=== PATIENT | male | born 1970 | race Caucasian/White ===

== ENCOUNTER 2020-02-16 12:34 | Emergency (ER) | payer OTHER, SELFPAY ==
--- NOTE | 2020-02-16 12:42 | ED.SKABFB ---
HPI - Skin/Abscess/Foreign Bdy General Chief complaint: Skin/Abscess/Foreign Body Stated complaint: remove jose francisco Time Seen by Provider: 02/16/20 12:45 Source: RN notes reviewed Mode of arrival: ambulatory Limitations: no limitations History of Present Illness HPI narrative: 49 year old male who presents to [facility] care with stated complaints of having received a laceration to the lateral right leg while on vacation in [place]. Patient states that is has been 12 days and he needs the jose francisco removed. Patient states that he got cut from a piece of wire on a chair and it took 28 jose francisco to close the wound. patient has V shaped wound to the right lateral lower leg (8cm length of inner laceration and 6cm length of outer laceration). Patient does have some red inflamed tissue distal to wound, denies any fevers or noted drainage from wound. complaint: laceration Onset (ago): day(s) (12 days ago while on vacation) Tetanus up to date: yes Location: LLE Severity: moderate Severity scale (1-10): 2 Quality: aching Pain Consistency: intermittent Relieving factors: rest Exacerbating factors: movement Context: other (injury while in [place]) Treatments prior to arrival: bandages and OTC topical medication (neosporin) Related Data Home Medications Medication Instructions Recorded Confirmed irbesartan 75 mg PO DAILY 02/16/20 02/16/20 metformin 500 mg PO BID 02/16/20 02/16/20 Allergies Allergy/AdvReac Type Severity Reaction Status Date / Time No Known Allergies Allergy Unverified 02/16/20 12:52 Review of Systems Review of Systems: Narrative: CONSTITUTIONAL: Denies fever, chills, or sweats. EYES: Denies visual changes, redness, or discharge. ENT: Denies rhinorrhea, congestion, sore throat, or otalgia. CARDIOVASCULAR: Denies chest pain, palpitations, or edema. RESPIRATORY: Denies cough or dyspnea. GASTROINTESTINAL: Denies abdominal pain, nausea, vomiting, or diarrhea. GENITOURINARY: Denies dysuria or hematuria. SKIN: Denies rash or itching. Vshape wound to right lateral lower leg with some redness noted to skin distal wound, mild pain to leg with activity MUSCULOSKELETAL: Denies back pain, joint pain, or myalgia. NEUROLOGIC: Denies headache, numbness, or weakness. PSYCHIATRIC: Denies anxiety or depression. All systems reviewed & are unremarkable except as noted in HPI and below PMFSH Past Medical History Medical History (Updated 02/16/20 @ 16:30 by Roxana Arceo NP) Ankle fracture Diabetes GERD (gastroesophageal reflux disease) Hypertension Surgical History Surgical History (Updated 02/16/20 @ 16:18 by Roxana Arceo NP) Hx of tonsillectomy Family History Family History Other Diabetes mellitus Family history of heart disease in male family member before age 55 Hypertension Social History Social History (Updated 02/16/20 @ 16:18 by Roxana Arceo NP) Smoking status: Never smoker Alcohol intake: current Substance use: never Living arrangements: with family Gender identity (if verbalized by the patient): Male Comments At time of signature, agree with nursing past medical, surgical, social and family history. There is no relevant family history pertinent to the presenting complaint Exam Narrative: Exam Narrative: GENERAL: Well-appearing, well-nourished, and in no acute distress. HEAD: Normocephalic, atraumatic. EYES: PERRLA and EOMI. ENT: Nares clear, no rhinorrhea or epistaxis. Mucous membranes moist. NECK: Supple. CHEST: Clear to auscultation. No respiratory distress. HEART: Regular rate and rhythm. No murmur heard. Normal peripheral pulses. ABDOMEN: Soft, nontender, nondistended, normal active bowel sounds. EXTREMITIES: Normal range of motion. No edema. SKIN: Warm, dry. 8cm X 6cm V shaped wound on lateral right lower leg, 28 jose francisco removed with edges well approximated, no drainage, some shiny redness of skin distal wound area, n
[2020-02-16 12:46] VITALS: BP 154/81; PULSE 77; RESP 16; TEMP 36.3; O2SAT 99
== END 2020-02-16 13:26 | disposition home or self-care (01) ==
PROVIDERS: Emergency Provider Registered Nurse
DX: S81.811D Laceration without foreign body, right lower leg, subsequent encounter (principal); W45.8XXD Other foreign body or object entering through skin, subsequent encounter; L03.115 Cellulitis of right lower limb; E11.9 Type 2 diabetes mellitus without complications; K21.9 Gastro-esophageal reflux disease without esophagitis; I10 Essential (primary) hypertension
CPT/HCPCS: 99203; G0463

== ENCOUNTER 2021-09-15 08:32 | Outpatient (CLI) | payer OTHER, SELFPAY ==
--- NOTE | 2021-09-15 09:01 | EST_ITS ---
Patient Info Name: Mich Mcfarland Age: 51 years : 1970 Gender: Male Ht: 72 in Wt: 290 lbs BSA: 2.64 m2 HR: 78 bpm BP: 123 / 82 mmHg Exam Date: 09/15/2021 9:14 AM Exam Location: [facility] Patient Status: Outpatient Admit Date: 09/15/2021 Staff Ordering Physician: Christine Robles NP Attending Provider: DR. HALL Exercise Technologist: Bao Schumacher, ELIAZAR, RT Exercise Physician: Griffin Hall DO Exam Type: CA stress test treadmill Study Info Indications R07.1 - Chest pain on breathing An exercise stress test was performed. Summary 1. 1. Negative Ra exercise stress test for ischemic ST changes by ECG criteria up to HR 130 bpm. Then development of LBBB which is inconclusive for ischemia by ECG criteria. 2. 2. Good functional capacity, achieving 10 METs of workload. 3. 3. Appropriate HR response to exercise. 4. 4. Appropriate HR recovery at 1 minute post exercise. 5. 5. No imaging with stress testing. 6. 6. Patient informed of the above results. Protocol: [facility] ECG Details Stage: REST Duration (min): 2 min : 33 sec Speed (mph): 0.0 Grade (%): 0 HR (bpm): 90 SBP (mmHg): 123 DBP (mmHg): 82 METS: --- Stage: REST Duration (min): 7 min : 37 sec Speed (mph): 1.0 Grade (%): 0 HR (bpm): 95 SBP (mmHg): 123 DBP (mmHg): 82 METS: --- Stage: STAGE 1 Duration (min): 1 min : 0 sec Speed (mph): 1.7 Grade (%): 10 HR (bpm): 101 SBP (mmHg): 123 DBP (mmHg): 82 METS: --- Stage: STAGE 1 Duration (min): 2 min : 0 sec Speed (mph): 1.7 Grade (%): 10 HR (bpm): 103 SBP (mmHg): 123 DBP (mmHg): 82 METS: --- Stage: STAGE 1 Duration (min): 3 min : 0 sec Speed (mph): 1.7 Grade (%): 10 HR (bpm): 109 SBP (mmHg): 157 DBP (mmHg): 79 METS: --- Stage: STAGE 2 Duration (min): 1 min : 0 sec Speed (mph): 2.5 Grade (%): 12 HR (bpm): 114 SBP (mmHg): 157 DBP (mmHg): 79 METS: --- Stage: STAGE 2 Duration (min): 2 min : 0 sec Speed (mph): 2.5 Grade (%): 12 HR (bpm): 118 SBP (mmHg): 169 DBP (mmHg): 75 METS: --- Stage: STAGE 2 Duration (min): 3 min : 0 sec Speed (mph): 2.5 Grade (%): 12 HR (bpm): 126 SBP (mmHg): 169 DBP (mmHg): 75 METS: --- Stage: STAGE 3 Duration (min): 1 min : 0 sec Speed (mph): 3.4 Grade (%): 14 HR (bpm): 143 SBP (mmHg): 192 DBP (mmHg): 85 METS: --- Stage: STAGE 3 Duration (min): 2 min : 0 sec Speed (mph): 3.4 Grade (%): 14 HR (bpm): 144 SBP (mmHg): 192 DBP (mmHg): 85 METS: --- Stage: STAGE 3 Duration (min): 2 min : 42 sec Speed (mph): 3.4 Grade (%): 14 HR (bpm): 149 SBP (mmHg): 185 DBP (mmHg): 72 METS: --- Stage: RECOVERY Duration (min): 0 min : 17 sec Speed (mph): 1.5 Grade (%): 0 HR (bpm): 148 SBP (mmHg): 185 DBP (mmHg
== END 2021-09-15 08:33 | disposition home or self-care (01) ==
PROVIDERS: PCP Internal Medicine; Visit Provider Nurse Practitioner
DX: R07.9 Chest pain, unspecified (principal)
CPT/HCPCS: 93017

== ENCOUNTER 2021-11-24 02:52 | Day surgery (SDC) | payer OTHER, SELFPAY ==
[2021-11-10 15:04] VITALS: BMI 37.0
--- NOTE | 2021-11-24 07:34 | P.PNAN_ITS ---
Anes - Initial Pre Proc Eval Procedure: Operation Date: 11/24/21 09:15 Proposed Procedures p Esophagogastroduodenoscopy & Screening Colonoscopy - Clay Katz MD Date/Time: 11/24/21 07:34 Surgeon: Clay Santacruz MD Pre Op Diagnosis: neoplasm screening, GERD Patient Data Age: 51 Gender: M Height: 1.88 m Weight: 131 kg Allergies Allergy/AdvReac Type Severity Reaction Status Date / Time No Known Allergies Allergy Verified 11/24/21 08:22 Home Medications Medication Instructions Recorded Confirmed Type cholecalciferol (vitamin D3) 10 10 mcg PO DAILY 09/04/21 11/10/21 History mcg (400 unit) capsule dapagliflozin 10 mg tablet 10 mg PO DAILY 09/04/21 11/10/21 History esomeprazole magnesium 20 mg 20 mg PO DAILY 09/04/21 11/10/21 History capsule,delayed release irbesartan 75 mg tablet 75 mg PO DAILY 09/04/21 11/10/21 History metformin 1,000 mg 24 hr 1,000 mg PO BID 09/04/21 11/10/21 History tablet,extended release rosuvastatin 5 mg tablet 5 mg PO DAILY 09/04/21 11/10/21 History semaglutide 1 mg/dose (4 mg/3 mL) 1 mg SUBCUT WEEKLY 09/04/21 11/10/21 History subcutaneous pen injector vitamin B complex 1 tablet PO DAILY 09/04/21 11/10/21 History Patient hx anesthesia problems: none Family hx anesthesia problems: none Results Review: All pre-operative results and documents have been reviewed as part of the pre-operative evaluation. [facility] Past Medical History Medical History (Updated 11/24/21 @ 07:34 by Maix Willis DO) Ankle fracture Cardiovascular stress test abnormal Diabetes GERD (gastroesophageal reflux disease) Hyperlipidemia Hypertension Surgical History Surgical History Hx of tonsillectomy Family History Family History Other Diabetes mellitus Family history of heart disease in male family member before age 55 Hypertension Social History Social History Smoking status: Never smoker Alcohol intake: current Alcohol use details: on occasion Substance use: never Substance use type: does not use Living arrangements: with family Gender identity (if verbalized by the patient): Male Spiritual care concerns: No Anes - Eval Final PreProcedure Day of Procedure 11/24/21 07:34 Patient weight: obese Heart: regular rate and rhythm Lungs: clear to auscultation and normal air movement Airway: Mallampati scale class II Neurological: alert and oriented Last oral intake: >/= 8 hours ASA classification: III Emergent: no Anesthetic plan: proceed Anesthesia type and monitoring: general GIVS and standard monitoring Results Review: All pre-operative results and documents have been reviewed as part of the pre-operative evaluation. Informed Consent: The patient's anesthetic plan and its attendant risks and benefits were discussed with the patient/family/POA. Questions were solicited and answers provided to the satisfaction of the patient/family/POA.
[2021-11-24 08:22] VITALS: BP 134/80; PULSE 87; RESP 18; TEMP 36.3; O2SAT 97; BMI 36.4
[2021-11-24] MEDS: LACTATED RINGERS 1,000 ML 150 ML IV CONT (08:39)
[2021-11-24 08:43] LABS: Glucose Point of Care 157 mg/dl (65-105)
--- NOTE | 2021-11-24 08:53 | PM.HPGS ---
History of Present Illness History of Present Illness Consent: Risks, benefits, and alternatives have been discussed and questions answered. Patient agrees to proceed with procedure. Chief complaint: neoplasm screening, GERD Narrative: Mich Mcfarland is a 51 year old male here for his first egd and screening colonoscopy. He has GERD controlled with omeprazole. Review of Systems Constitutional: Constitutional: Denies headache(s) and Denies weakness Eyes: Eyes: Denies blurry vision ENT: Reports Normal hearing present, Denies headache(s) and Denies neck pain Cardiovascular: Cardiovascular: Denies chest pain and Denies dyspnea Respiratory: Respiratory: Denies dyspnea Gastrointestinal: Gastrointestinal: Reports no additional gastrointestinal complaints Genitourinary: Genitourinary: Denies dysuria Musculoskeletal: Musculoskeletal: Denies neck pain Integumentary/Breasts: Skin/Breast: Denies dry skin Neurologic: Reports Normal hearing present, Denies headache(s) and Denies weakness Psychiatric: Psychiatric: Denies anxiety Endocrine: Endocrine: Denies change in body appearance Hematologic/Lymphatic: Hematologic/Lymphatic: Denies easy bleeding Allergic/Immunologic: Allergic/Immunologic: Denies urticaria PMFSH Past Medical History Medical History (Updated 11/24/21 @ 07:34 by Maxi Willis DO) Ankle fracture Cardiovascular stress test abnormal Diabetes GERD (gastroesophageal reflux disease) Hyperlipidemia Hypertension Surgical History Surgical History Hx of tonsillectomy Family History Family History Other Diabetes mellitus Family history of heart disease in male family member before age 55 Hypertension Social History Social History Smoking status: Never smoker Alcohol intake: current Alcohol use details: on occasion Substance use: never Substance use type: does not use Living arrangements: with family Gender identity (if verbalized by the patient): Male Spiritual care concerns: No Meds Home Medications and Allergies Home Medications Medication Instructions Recorded Confirmed Type cholecalciferol (vitamin D3) 10 10 mcg PO DAILY 09/04/21 11/10/21 History mcg (400 unit) capsule dapagliflozin 10 mg tablet 10 mg PO DAILY 09/04/21 11/10/21 History esomeprazole magnesium 20 mg 20 mg PO DAILY 09/04/21 11/10/21 History capsule,delayed release irbesartan 75 mg tablet 75 mg PO DAILY 09/04/21 11/10/21 History metformin 1,000 mg 24 hr 1,000 mg PO BID 09/04/21 11/10/21 History tablet,extended release rosuvastatin 5 mg tablet 5 mg PO DAILY 09/04/21 11/10/21 History semaglutide 1 mg/dose (4 mg/3 mL) 1 mg SUBCUT WEEKLY 09/04/21 11/10/21 History subcutaneous pen injector vitamin B complex 1 tablet PO DAILY 09/04/21 11/10/21 History Allergies Allergy/AdvReac Type Severity Reaction Status Date / Time No Known Allergies Allergy Verified 11/24/21 08:22 Vital Signs Vital Signs - 24 hr 11/24/21 08:22 Temperature 97.4 F L Pulse Rate 87 Respiratory Rate 18 Blood Pressure 134/80 Pulse Oximetry 97 Exam Const: General: comfortable and no acute distress HENMT: General nose exam: Normal nares present Eyes: General: appearance normal, both eyes and all related structures Neck: Neck: no JVD Resp: Auscultation: clear to auscultation bilaterally Cardio: Rate: regular rate Rhythm: regular rhythm GI: Inspection: non-distended GI Palp: Yes Soft to palpation Skin: General skin exam: normal color Neuro: General: gait normal Speech: normal speech Extrem: General: normal to inspection Psych: Mental Status: mental status grossly normal Assessment and Plan Assessment and plan (1) Screening for colon cancer: Code(s): Z12.11 - Encounter for screening for tim
--- NOTE | 2021-11-24 09:23 | SUR.OPER ---
EGD START 900, END 908 COLON START 911, END 922
[2021-11-24 09:24] VITALS: BP 108/71; PULSE 80; RESP 18; O2SAT 97
[2021-11-24 09:34] VITALS: BP 114/71; PULSE 76; RESP 18; O2SAT 97
[2021-11-24 09:44] VITALS: BP 112/73; PULSE 71; RESP 18; O2SAT 97
== END 2021-11-24 09:50 | disposition home or self-care (01) ==
PROVIDERS: PCP Internal Medicine; Visit Provider Internal Medicine Gastroenterology
PROC: 0DJ08ZZ Inspection of Upper Intestinal Tract, Via Natural or Artificial Opening Endoscopic (ICD-10-PCS; CPT 43235; principal; 2021-11-24 09:15)
DX: Z12.11 Encounter for screening for malignant neoplasm of colon (principal); D12.3 Benign neoplasm of transverse colon; K63.5 Polyp of colon; K64.8 Other hemorrhoids; K21.00 Gastro-esophageal reflux disease with esophagitis, without bleeding; K31.7 Polyp of stomach and duodenum; K29.50 Unspecified chronic gastritis without bleeding; I10 Essential (primary) hypertension; E78.5 Hyperlipidemia, unspecified; E11.9 Type 2 diabetes mellitus without complications; Z79.84 Long term (current) use of oral hypoglycemic drugs; Z79.899 Other long term (current) drug therapy; E66.9 Obesity, unspecified; Z68.36 Body mass index [BMI] 36.0-36.9, adult
CPT/HCPCS: 45385; 43239; 43251; 82948; 88305; J2704; J7120

== ENCOUNTER 2023-08-26 11:06 | Emergency (ER) | payer OTHER, SELFPAY ==
[2023-08-26] VITALS (12 sets, daily range): BP systolic 108–140; BP diastolic 62–97; PULSE 75–165; RESP 12–27; O2SAT 96–99
--- NOTE | ~2023-08-26 | XR_ITS ---
EXAMINATION: XR chest 2V DATE: 08/26/2023 11:42 INDICATION: Chest pain and dizziness TECHNIQUE: PA and lateral views of the chest are obtained. COMPARISON: None available FINDINGS: The lungs are free of acute opacities. No pleural effusion or pneumothorax. The cardiomedia stinal silhouette is normal. There is mild thoracic spondylosis. IMPRESSION: 1. No acute cardiopulmonary abnormality. Reviewed, dictated and finalized at location [facility]. [facility] [employer]
--- NOTE | 2023-08-26 11:07 | ECG_ITS ---
Measurements Intervals [place] Rate: 155 P: [place]: 0 QRS: -8 QRSD: 124 T: 138 QT: 267 QTc: 430 Interpretive Statements ATRIAL FIBRILLATION WITH RAPID VENTRICULAR RESPONSE LEFT BUNDLE BRANCH BLOCK [120+ ms QRS DURATION, 80+ ms Q/S IN V1/V2, 85+ ms R IN I/aVL/V5/V6] NO PREVIOUS ECG AVAILABLE FOR COMPARISON Electronically Signed On 08-26-2023 13:29:24 [employer] by Magdiel Parkinson M.D.
[2023-08-26] MEDS: dilTIAZem HCl INJ 25 MG/5 ML VIAL 15 MG IV PUSH (11:17)
[2023-08-26] MEDS: ASPIRIN 81 MG CHEWABLE TABLET 324 MG PO (11:18)
[2023-08-26] MEDS: dilTIAZem HCl INJ 25 MG/5 ML VIAL 10 MG IV PUSH (11:32)
[2023-08-26 11:34] LABS: Basophils Absolute Auto 0.1 K/mm3 (0.0-0.1); Basophils Percent Auto 0.4 % (0.2-1.2); Eosinophils Absolute Auto 0.1 K/mm3 (0-0.3); Hemoglobin 17.1 g/dL (14.0-18.0); Immature Granulocyte Absolute 0.04 K/mm3 (0.00-0.031); Immature Granulocyte Percent A 0.3 % (0-0.5); Lymphocytes Absolute Auto 4.07 K/mm3 (0.9-3.2); Lymphocytes Percent Auto 35.4 % (18.3-44.2); Mean Corpuscular HGB Conc 33.5 g/dl (32-36); Mean Corpuscular Volume 95.5 fl (80-100); Mean Platelet Volume 10.3 fl (7.4-10.4); Monocytes Absolute Auto 1.1 K/mm3 (0.1-0.6); Monocytes Percent Auto 9.6 % (2.6-8.5); Neutrophils Absolute Auto 6.1 K/mm3 (1.3-6.7); Neutrophils Percent Auto 53.3 % (45.5-73.1); Platelet Count Result 239 k/mm3 (150-375); Red Blood Count 5.34 M/mm3 (4.6-6.20); Red Cell Distribution Width 12.8 % (11.5-14.5); White Blood Count 11.5 K/mm3 (4.5-10.0)
[2023-08-26 11:45] LABS: Alanine Aminotransferase 41 U/L (6-50); Albumin Level 4.6 g/dL (3.5-5.1); Alkaline Phosphatase 72 U/L (38-126); Anion Gap 15 mmol/L (8-16); Aspartate Amino Transferase 33 U/L (17-59); Bilirubin,Total 0.8 mg/dL (0.2-1.3); Blood Urea Nitrogen 13 mg/dL (9-20); Calcium 9.4 mg/dL (8.4-10.2); Carbon Dioxide 20 mmol/L (22-30); Chloride 104 mmol/L (98-107); Estimated CRCL calculation 130 ml/min; Estimated Glomerular Filt Rate > 60; Glucose 261 mg/dL (65-110); Lipase 68 U/L (23-300); Potassium 4.3 mmol/L (3.4-5.0); Sodium 139 mmol/L (137-145)
[2023-08-26 11:46] LABS: INR 0.9; Prothrombin Time 12.5 Seconds (11.1-14.7)
[2023-08-26 11:47] LABS: Partial Thromboplastin Time 26.8 SECONDS (22.3-36.8)
[2023-08-26 11:56] LABS: Troponin I < 0.012 ng/mL (0.000-0.034)
--- NOTE | 2023-08-26 12:09 | ED.GENADULT ---
HPI - General Adult General Chief complaint: Chest Pain Stated complaint: chest pain Time Seen by Provider: 08/26/23 11:13 History of Present Illness HPI narrative: Patient is a 53-year-old male who presents ER with feeling off since this morning. No chest pain or shortness of breath. No dizziness. He has was felt more weak and ill. Arrived was found to be in atrial fibrillation with RVR. No history of arrhythmia or heart disease. He has seen a coil winder due to family history of congestive heart failure. No new leg swelling or orthopnea. Related Data Home Medications Medication Instructions Recorded Confirmed irbesartan 75 mg tablet mg 08/26/23 08/26/23 metformin 500 mg tablet mg 08/26/23 rosuvastatin 20 mg tablet mg 08/26/23 semaglutide 2 mg/dose (8 mg/3 mL) mg subcut 08/26/23 subcutaneous pen injector (Ozempic) Allergies Allergy/AdvReac Type Severity Reaction Status Date / Time No Known Allergies Allergy Verified 08/26/23 11:20 Review of Systems Review of Systems: All systems reviewed & are unremarkable except as noted in HPI and below Constitutional: Constitutional: Denies chills, Reports fatigue and Denies fever(s) ENT: Reports system reviewed and no additional complaints, except as documented Cardiovascular: Cardiovascular: Reports no additional cardiovascular complaints Respiratory: Respiratory: Reports no additional respiratory complaints Gastrointestinal: Gastrointestinal: Reports no additional gastrointestinal complaints Neurologic: Reports system reviewed and no additional complaints, except as documented [facility] Past Medical History Medical History Ankle fracture Cardiovascular stress test abnormal Diabetes GERD (gastroesophageal reflux disease) Hyperlipidemia Hypertension Surgical History Surgical History Hx of tonsillectomy Family History Family History Other Diabetes mellitus Family history of heart disease in male family member before age 55 Hypertension Social History Social History Smoking status: Never smoker Alcohol intake: current Alcohol use details: on occasion Substance use: never Substance use type: does not use Lack of Transportation: No Lack of Food: Never True Current Housing: I Have Housing Concerned About Future Housing: No Difficulty Paying Gas/Electric Bills: No Difficulty Paying for Meds: No Currently Unemployed: No Education: Bachelor's Degree Difficulty w/ Childcare or Family Care: No Living arrangements: with family Gender identity (if verbalized by the patient): Male Spiritual care concerns: No Exam Narrative: GENERAL: Well-appearing, well-nourished, and in no acute distress. HEAD: Normocephalic, atraumatic. ENT: Mucous membranes moist. NECK: Supple. CHEST: Clear to auscultation. No respiratory distress. HEART: Irregularly irregular rate and rhythm. Normal peripheral pulses. ABDOMEN: Soft, nontender, nondistended. EXTREMITIES: Normal range of motion. No edema. SKIN: Warm, dry, no rash. NEURO: Alert and oriented x3. PSYCH: Normal mood and affect. Course Course Emergency Course: Patient received diltiazem 25 mg. He converted to a sinus rhythm. Discussed with cardiology. Recommends metoprolol XL 25 mg daily starting tomorrow and follow-up in clinic. Patient aware diagnosis and treatment plan. Vital Signs Vital signs: Vital Signs Pulse Rate 139 H 08/26/23 11:11 Respiratory Rate 17 08/26/23 11:11 Blood Pressure 120/95 H 08/26/23 11:11 Pulse Oximetry 98 08/26/23 11:11 Oxygen Delivery Room Air 08/26/23 11:11 Pulse Rate 78 08/26/23 13:01 Respiratory Rate 14 08/26/23 13:01 Blood Pressure 116/62 08/26/23 13:01 Pulse Oximetry 96
--- NOTE | 2023-08-26 12:16 | ECG_ITS ---
Measurements Intervals [place] Rate: 80 P: 29 AR: 163 QRS: -10 QRSD: 104 T: 102 QT: 324 QTc: 376 Interpretive Statements SINUS RHYTHM SEPTAL MYOCARDIAL INFARCTION , OF INDETERMINATE AGE [40+ ms Q WAVE IN V1/V2] MODERATE T-WAVE ABNORMALITY, CONSIDER LATERAL ISCHEMIA [-0.1+ mV T WAVE IN I/aVL/V5/V6] COMPARED TO ECG 08/26/2023 11:10:04 SINUS RHYTHM NOW PRESENT LEFT BUNDLE BRANCH BLOCK NO LONGER PRESENT Electronically Signed On 08-26-2023 13:31:58 [employer] by Magdiel Parkinson M.D.
[2023-08-26 12:42] LABS: NT Pro B Type Natriuretic Pept 39 pg/mL (19.9-100)
== END 2023-08-26 14:00 | disposition home or self-care (01) ==
PROVIDERS: Emergency Provider Emergency Medicine; PCP Internal Medicine
DX: I48.91 Unspecified atrial fibrillation (principal); E11.9 Type 2 diabetes mellitus without complications; E78.5 Hyperlipidemia, unspecified; I10 Essential (primary) hypertension; K21.9 Gastro-esophageal reflux disease without esophagitis; Z79.84 Long term (current) use of oral hypoglycemic drugs; Z79.85 Long-term (current) use of injectable non-insulin antidiabetic drugs; I44.7 Left bundle-branch block, unspecified; R94.31 Abnormal electrocardiogram [ECG] [EKG]
CPT/HCPCS: 36415; 71046; 80053; 83690; 83880; 84484; 85025; 85610; 85730; 93005; 96374; 99284; A9270; J7030

== ENCOUNTER 2023-10-16 03:06 | Observation (INO) | payer OTHER, SELFPAY ==
[2023-10-16] VITALS (29 sets, daily range): BP systolic 97–177; BP diastolic 58–96; PULSE 52–147; RESP 11–21; TEMP 36.2–36.8; O2SAT 94–100; BMI 37.0
--- NOTE | ~2023-10-16 | XR_ITS ---
EXAMINATION: XR chest 1V portable DATE: 10/16/2023 03:27 INDICATION: Atrial fibrillation with racing heart. TECHNIQUE: frontal view of the chest was obtained. COMPARISON: Chest radiograph dated 08/26/2023 FINDINGS: The lungs remain clear with no focal airspace opacities, pulmonary edema, pleural effusion or pneumot horax. The cardiomediastinal silhouette is normal. Visualized bones and soft tissues are unremarkable . IMPRESSION: 1. No acute cardiopulmonary disease. Reviewed, dictated and finalized at location A.
--- NOTE | 2023-10-16 03:07 | ECG_ITS ---
SEE SCANNED COPY FOR CONFIRMED REPORT MTDD
[2023-10-16 03:22] LABS: Basophils Percent Auto 0.4 % (0.2-1.2); Eosinophils Absolute Auto 0.2 K/mm3 (0-0.3); Eosinophils Percent Auto 1.8 % (0-4.4); Hemoglobin 16.7 g/dL (14.0-18.0); Immature Granulocyte Absolute 0.03 K/mm3 (0.00-0.031); Immature Granulocyte Percent A 0.3 % (0-0.5); Lymphocytes Percent Auto 42.7 % (18.3-44.2); Mean Corpuscular HGB Conc 34.8 g/dl (32-36); Mean Corpuscular Volume 94.9 fl (80-100); Mean Platelet Volume 9.7 fl (7.4-10.4); Neutrophils Absolute Auto 3.9 K/mm3 (1.3-6.7); Neutrophils Percent Auto 43.8 % (45.5-73.1); Platelet Count Result 196 k/mm3 (150-375); Red Blood Count 5.06 M/mm3 (4.6-6.20); Red Cell Distribution Width 12.4 % (11.5-14.5); White Blood Count 8.9 K/mm3 (4.5-10.0)
[2023-10-16 03:32] LABS: Alanine Aminotransferase 34 U/L (6-50); Albumin Level 4.7 g/dL (3.5-5.1); Alkaline Phosphatase 76 U/L (38-126); Anion Gap 9 mmol/L (4-12); Aspartate Amino Transferase 28 U/L (17-59); Bilirubin,Total 0.5 mg/dL (0.2-1.3); Blood Urea Nitrogen 9 mg/dL (9-20); Calcium 10.1 mg/dL (8.4-10.2); Carbon Dioxide 27 mmol/L (22-30); Chloride 105 mmol/L (98-107); Estimated CRCL calculation 131 ml/min; Estimated Glomerular Filt Rate > 60; Glucose 224 mg/dL (65-110); INR 0.9; Lipase 109 U/L (23-300); Potassium 3.7 mmol/L (3.4-5.0); Prothrombin Time 12.3 Seconds (11.1-14.7); Sodium 141 mmol/L (137-145)
[2023-10-16 03:33] LABS: Partial Thromboplastin Time 27.7 Seconds (22.3-36.8)
--- NOTE | 2023-10-16 03:35 | PC.NURSE ---
edp dr. lane vorb 10mg of diltiazem IV push. this rn used closed loop communication to confirm 10mg of diltiazem IVP. This rn read back dose, medication, route, and patient. edp dr. lane confirmed.
[2023-10-16] MEDS: dilTIAZem HCl INJ 25 MG/5 ML VIAL 10 MG IV PUSH ×2 (03:39→04:02)
[2023-10-16 03:43] LABS: Troponin I < 0.012 ng/mL (0.000-0.034)
--- NOTE | 2023-10-16 04:04 | ED.GENADULT ---
HPI - General Adult General Chief complaint: Arrhythmia/Palpitations Stated complaint: I'm pretty sure I'm in afib again Time Seen by Provider: 10/16/23 03:15 History of Present Illness HPI narrative: This is a 53-year-old male history of paroxysmal AFib presenting with palpitations. Patient says he was having trouble going to sleep last night due to palpitations. Tried for several hours to relax was unable to get his heart rate controlled. He then came to the emergency department for evaluation. Patient had 1 previous episode of paroxysmal AFib that converted in the emergency department. He has recently seen a pharmacy general manager discuss his 1 episode at that time decided not placed on anticoagulation because of his isolated episode. Patient has no other symptoms at this time. Related Data Home Medications Medication Instructions Recorded Confirmed irbesartan 75 mg tablet mg 08/26/23 08/26/23 metformin 500 mg tablet mg 08/26/23 rosuvastatin 20 mg tablet mg 08/26/23 semaglutide 2 mg/dose (8 mg/3 mL) mg subcut 08/26/23 subcutaneous pen injector (Ozempic) Allergies Allergy/AdvReac Type Severity Reaction Status Date / Time No Known Allergies Allergy Verified 10/16/23 03:15 COUNT INCLUDES THE [facility] Past Medical History Medical History Ankle fracture Cardiovascular stress test abnormal Diabetes GERD (gastroesophageal reflux disease) Hyperlipidemia Hypertension Surgical History Surgical History Hx of tonsillectomy Family History Family History Other Diabetes mellitus Family history of heart disease in male family member before age 55 Hypertension Social History Social History Smoking status: Never smoker Alcohol intake: current Alcohol use details: on occasion Substance use: never Substance use type: does not use Lack of Transportation: No Lack of Food: Never True Current Housing: I Have Housing Concerned About Future Housing: No Difficulty Paying Gas/Electric Bills: No Difficulty Paying for Meds: No Currently Unemployed: No Education: Bachelor's Degree Difficulty w/ Childcare or Family Care: No Living arrangements: with family Gender identity (if verbalized by the patient): Male Spiritual care concerns: No Exam Narrative: APPEARANCE: No apparent distress. Head: atraumatic. EYES: EOMI, NOSE: Atraumatic NECK: Trachea midline RESPIRATORY: No increased rate of breathing clear to auscultation CARDIOVASCULAR: Tachycardic, regular, no peripheral edema ABDOMINAL: Non-distended MUSCULOSKELETAl: No obvious deformities NEURO: Alert. Moving 4/4 extremities SKIN:: Warm, dry. Normal color PSYCHIATRIC: Normal affect Course Vital Signs Vital signs: Vital Signs Temperature 98.2 F 10/16/23 03:12 Pulse Rate 134 H 10/16/23 03:12 Respiratory Rate 16 10/16/23 03:12 Blood Pressure 177/86 H 10/16/23 03:12 Pulse Oximetry 100 10/16/23 03:12 Oxygen Delivery Room Air 10/16/23 03:12 Temperature 98.2 F 10/16/23 03:12 Pulse Rate 95 10/16/23 04:16 Respiratory Rate 17 10/16/23 04:16 Blood Pressure 141/80 H 10/16/23 04:16 Pulse Oximetry 97 10/16/23 04:16 Oxygen Delivery Room Air 10/16/23 03:12 Medical Decision Making [facility] Narrative Medical decision making narrative: -Course: 53-year-old male with paroxysmal AFib presenting with AFib with RVR which he believes started around midnight. Patient given his home dose of metoprolol XL. Given 10 mg of diltiazem x2 with some improvement but still in RVR. Patient started on a diltiazem drip. Patient may be a candidate for cardioversion. Patient given Lovenox for anticoagulation due to chadsVasc 2. Patient will be placed in observation for further management. -Co-morbidities compli
[2023-10-16] MEDS: METOPROLOL SUCCINATE EXT REL 25 MG TABCR PO (04:07)
[2023-10-16] MEDS: SODIUM CHLORIDE 0.9% IV 1,000 ML 999 ML IV CONT (04:17)
[2023-10-16] MEDS: ENOXAPARIN 100 MG/ML SYRINGE SUB-Q (04:47)
[2023-10-16] MEDS: ENOXAPARIN 30 MG/0.3 ML SYRINGE SUB-Q (04:47)
[2023-10-16] MEDS: dilTIAZem 100 MG/100 ML 100 MG/100 ML BAG IV CONT (05:04)
--- NOTE | 2023-10-16 05:09 | PM.IMHP ---
H&P: HPI History of Present Illness Date/Time: 10/16/23 05:09 Chief Complaint: Feels like AFib Narrative: 53-year-old male with past medical history of obesity, essential hypertension, for a type 2 diabetes mellitus, grade 2 diastolic dysfunction and paroxysmal atrial fibrillation who presented to the ER with feeling restless and heart racing similar to when he had AFib. The Patient had his 1st episode of AFib in August 2023. He was treated with 1 dose of Cardizem 25 mg at that time in converted back to sinus rhythm. He was started on Toprol-XL. He followed up with Cardiology with shared decision making they decided not to proceed with long-term anticoagulation given 1 time episode of AFib. However this evening when he was preparing for bed at around 00:30 he could feel his heart palpating and racing. He could not get comfortable. He was not having any shortness of breath for chest pain he just had the odd sensation that he knew he was in AFib. When he arrived to the ER his heart rate was up to the 130s. His initial troponin was negative. His EKG did not demonstrate any evidence of acute ischemia. He received 1 dose of Toprol-XL in the ER and 2 doses of Cardizem 10 mg. The patient's heart rate did slow down but rebounded back up into the 100s to 110's. Patient was also extremely symptomatic with the AFib. He was subsequently admitted to IMU as observation for Cardizem drip. Patient's Cardizem drip was increased to 10 mg while he was still in the ER. On arrival to IMU patient's heart rate was down into the 90s but he was in persistent AFib. Repeat EKG was performed and reviewed while I was at bedside. EKG was unchanged from the one prior in the evening. The patient reports that he no longer drinks caffeinated beverages since his 1st episode of AFib. He does not use energy drinks. He has been sleeping well. He is obese and has a crowded posterior oropharynx. He denies any known history of snoring. He denies daytime fatigue or sleepiness. He did have echo August 2018 a demonstrated grade 2 diastolic dysfunction with EF of 60% moderate to severe enlargement of the left atrium and mild right atrial enlargement. He does have a left bundle-branch block and underwent nuclear stress test that demonstrated hypokinetic apical segment fit no ischemia. Patient has never had a sleep study. He does chew tobacco 1 can daily and has done so since he was in his 20s. However, he has never smoked tobacco. The patient's last A1c with our system was in 2021. He does not know what his most recent A1c was. Review of Systems Review of Systems: 12 systems were reviewed with pertinent positives and negatives per HPI. Except as documented in the HPI, all other systems were reviewed and are negative. Patient has not followed up with for his diabetic eye exam in the last 2 years. He denies any recent vision changes. He does not check his glucoses very often. He does have some symptoms of peripheral neuropathy in his feet. [facility] Past Medical History Medical History (Updated 10/16/23 @ 07:26 by Nicolasa King DO) Ankle fracture Cardiovascular stress test abnormal Diabetic peripheral neuropathy Dyslipidemia GERD (gastroesophageal reflux disease) Hypertension Type 2 diabetes mellitus Surgical History Surgical History (Updated 10/16/23 @ 07:26 by Nicolasa King DO) History of adenoidectomy Childhood S/P anal fissurectomy (~1999) Family History Family History (Updated 10/16/23 @ 07:28 by Nicolasa King DO) Father , At age 80 Family history of heart disease in male family member before age 55 Mother CHF (congestive heart failure) Atrial fibrillation Grandparent Thyroid cancer Diabetes mellitus Atrial fibrillation Other Hypertension Social History Social History (Updated 10/16/23 @ 07:29 by Nicolasa King DO) Social History: Patient lives with his of approximately 31 years. They raised 2 child
--- NOTE | 2023-10-16 05:29 | PC.NURSE ---
this rn attempted to call report.
--- NOTE | 2023-10-16 06:00 | PC.NURSE ---
this rn attempted to call report.
--- NOTE | 2023-10-16 06:07 | ECG_ITS ---
SEE SCANNED COPY FOR CONFIRMED REPORT MTDD
--- NOTE | 2023-10-16 06:09 | PC.NURSE ---
this rn attempted to call report.
--- NOTE | 2023-10-16 07:10 | ADMGEN ---
This patient, Mich Mcfarland, was admitted to IMU Room 201-01 on 10/16/23 at 0626. Patient/family oriented to hospital policies and general routines including ID bracelet, bed and alarms, visiting hours, pain management, procedures, bathroom and other care routines, personal items, smoking policy, room service/diet, and visiting hours. Information on how to activate the Rapid Response Team has been discussed. Patient/Family are encouraged to report perceived risks to care and to ask questions if they do not understand what they are told or what they should do.
[2023-10-16 08:00] LABS: Troponin I < 0.012 ng/mL (0.000-0.034)
[2023-10-16 08:04] LABS: Hemoglobin A1C 7.1 % (<5.7)
--- NOTE | 2023-10-16 08:25 | ECG_ITS ---
SEE SCANNED COPY FOR CONFIRMED REPORT MTDD
[2023-10-16 10:16] LABS: Glucose Point of Care 192 mg/dl (65-105)
[2023-10-16 10:53] LABS: Troponin I < 0.012 ng/mL (0.000-0.034)
--- NOTE | 2023-10-16 11:31 | PM.CNCAR ---
Assessment and Plan Assessment and plan (1) Paroxysmal atrial fibrillation with rapid ventricular response: Code(s): I48.0 - Paroxysmal atrial fibrillation Status: Acute (2) Hypertension: Qualifiers: Hypertension type: primary hypertension Qualified Code(s): I10 - Essential (primary) hypertension Code(s): I10 - Essential (primary) hypertension Status: Acute Plan Paroxysmal AF, [id number] score 3, plan start Xarelto 20 mg daily and increase metoprolol XL to 50 mg daily, d/c IV diltiazem, if more recurrences then consider antiarrhythmic drugs HTN controlled cont on Metoprolol and irbesartan Grade II diastolic heart failure, with dilated LA, currently compensated, plan cont ARB and B-phill, watch for signs of CHF History of Present Illness History of Present Illness Consult date/time: 10/16/23 11:31 Reason For Visit: A Fib w/RVR Narrative: 53 years male presented with acute onset palpitations and SOB with feeling anxiety and tired. HE had Hx of AF and diagnosed in Aug 2023. He had no recurrent episodes since then. On arrival to ED he was found to have AF with RVR and started on Dilitazem but converted back to SR earlier this morning. Review of Systems Review of Systems: 12 points review of system negative except for stated above. [facility] Past Medical History Medical History (Updated 10/16/23 @ 07:26 by Nicolasa King DO) Ankle fracture Cardiovascular stress test abnormal Diabetic peripheral neuropathy Dyslipidemia GERD (gastroesophageal reflux disease) Hypertension Type 2 diabetes mellitus Surgical History Surgical History (Updated 10/16/23 @ 07:26 by Nicolasa King DO) History of adenoidectomy Childhood S/P anal fissurectomy (~1999) Family History Family History (Updated 10/16/23 @ 07:28 by Nicolasa King DO) Father , At age 80 Family history of heart disease in male family member before age 55 Mother CHF (congestive heart failure) Atrial fibrillation Grandparent Thyroid cancer Diabetes mellitus Atrial fibrillation Other Hypertension Social History Social History (Updated 10/16/23 @ 07:29 by Nicolasa King DO) Social History: Patient lives with his of approximately 31 years. They raised 2 children. 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 He has chewed tobacco since his early 20s into his about a can a day. He has never smoked tobacco. He only drinks on occasion in in moderation. He denies illicit substance use. Code status: Full code Healthcare power of admitted attorneys: Smoking status: Current every day smoker Tobacco type: smokeless tobacco Smokeless tobacco user: chewing tobacco Alcohol intake: never Alcohol use details: on occasion Substance use: never Substance use type: does not use Do You Feel Safe in your Home?: Yes Lack of Transportation: YES Lack of Food: Never True Current Housing: I Have Housing Concerned About Future Housing: No Difficulty Paying Gas/Electric Bills: No Difficulty Paying for Meds: No Currently Unemployed: No Education: Bachelor's Degree Difficulty w/ Childcare or Family Care: No Living arrangements: with family Gender identity (if verbalized by the patient): Male Spiritual care concerns: No Meds Home Medications and Allergies Home Medications Medication Instructions Recorded Confirmed Type irbesartan 75 mg tablet 75 mg PO HS 08/26/23 10/16/23 History metformin 500 mg tablet 500 mg PO BID 08/26/23 10/16/23 History metoprolol succinate 25 mg 25 mg PO DAILY #30 tabs 08/26/23 10/16/23 Rx tablet,extended release 24 hr (Toprol XL) rosuvastatin 20 mg tablet 20 mg PO DAILY 08/26/23 10/16/23 History semaglutide 2 mg/dose (8 mg/3 mL) 2 mg subcut WEEKLY 08/26/23 10/16/23 History subcutaneous pen injector (Ozempic) Allergies Allergy/AdvReac Type Severity Reaction Stat
[2023-10-16] MEDS: METOPROLOL SUCCINATE EXT REL 50 MG TABCR PO (12:47)
--- NOTE | 2023-10-16 14:33 | PCCCNOTE ---
On 10/16/23, the student, [Leonor Rivas], provided care and completed [facility] documentation on this patient. I have reviewed the student's documentation and agree with the findings.
[2023-10-16 17:18] LABS: Glucose Point of Care 196 mg/dl (65-105)
--- NOTE | 2023-10-16 17:20 | PM.DS ---
DS: Admitting Diagnosis Discharge Date October 16, 2023 Admitting Diagnosis Palpitations and shortness of breath DS: Discharge Diagnosis Discharge Diagnosis (1) Paroxysmal atrial fibrillation with rapid ventricular response: Code(s): I48.0 - Paroxysmal atrial fibrillation Status: Acute DS: Summary Hospital Course Hospital Course: 53-year-old male with past medical history obesity, atrial fibrillation dx'ed 08/2023, essential hypertension, grade 2 diastolic dysfunction, [id number] diabetes mellitus presented with feelings of anxiety palpitations and shortness of breath. His 1st episode in August was in [facility] ER at which time he was treated with dose of Cardizem 25 mg and converted to sinus rhythm. He was started on Toprol XL 25 mg p.o. q.day and sent home without anticoagulation. Returns again with the symptoms described above in found to be in AFib with RVR. He was started on Cardizem drip 10 milligrams/hour in the ER and in the a.m. of 10/15 he converted to sinus rhythm. Cardiology consultation completed - the patient's Toprol XL has been increased from 25 mg to 50 mg p.o. q.day. Xarelto started as well. He will be discharged home on 10/15 in stable condition. He is to follow-up with his primary paper pattern inspector Dr. Grimes within 1 week. He knows to also follow with PCP for sleep study given his large habitus and large neck circumference. Due to soft blood pressure is irbesartan has been held and this can be restarted at the advisement of Cardiology/PCP. Adverse effects, risks and benefits have been discussed and the patient is in understanding and agreement with this plan. The patient was full code during his admission. Time Spent with Patient Time attestation: Total time spent providing and/or coordinating discharge services: Exam Const: General: cooperative and no acute distress Resp: Effort & Inspection: normal respiratory effort Auscultation: clear to auscultation bilaterally Cardio: Rate: regular rate Rhythm: regular rhythm Heart sounds: S1 normal heart sound present and S2 normal heart sound present GI: GI Palp: No abdominal tenderness Auscultation: normal bowel sounds DS: Data Data Completed and Pending Labs on day of discharge: Labs from last 24 hours 10/16/23 10/16/23 10/16/23 16:21 10:22 10:09 WBC RBC Hgb Hct MCV MCH MCHC RDW Plt Count MPV Immature Gran % (Auto) Neut % (Auto) Lymph % (Auto) Pettis % (Auto) Eos % (Auto) Baso % (Auto) Lymph # (Auto) Pettis # (Auto) Eos # (Auto) Baso # (Auto) Abs Immat Gran (auto) Absolute Neuts (auto) Absolute Nucleated RBC Nucleated RBC % PT INR APTT Sodium Potassium Chloride Carbon Dioxide Anion Gap BUN Creatinine Estim Creat Clear Calc Estimated GFR Glucose POC Capillary Glucose 196 H 192 H Hemoglobin A1c Calcium Total Bilirubin AST ALT Alkaline Phosphatase Troponin I < 0.012 Total Protein Albumin Lipase TSH (Reflex) 10/16/23 10/16/23 07:28 03:16 WBC 8.9 RBC 5.06 Hgb 16.7 Hct 48.0 MCV 94.9 MCH 33.0 MCHC 34.8 RDW 12.4 Plt Count 196 MPV 9.7 Immature Gran % (Auto) 0.3 Neut % (Auto) 43.8 L Lymph % (Auto) 42.7 Pettis % (Auto) 11.0 H Eos % (Auto) 1.8 Baso % (Auto) 0.4 Lymph # (Auto) 3.80 H Pettis # (Auto) 1.0 H Eos # (Auto) 0.2 Baso # (Auto) 0.0 Abs Immat Gran (auto) 0.03 Absolute Neuts (auto) 3.9 Absolute Nucleated RBC 0.000 Nucleated RBC % 0.0 PT 12.3 INR 0.9 APTT 27.7 Sodium 141 Potassium 3.7 Chloride 105 Carbon Dioxide 27 Anion Gap 9 BUN 9 Creatinine 0.80 Estim Creat Clear Calc 131 Estimated GFR > 60 Glucose 224 H POC Capillary Glucose Hemoglobin A1c 7.1 H Calcium 10.1 Total Bilirubin 0.5 AST 28 ALT 34 Alkaline Phosphatase 76 Troponin I < 0.012
== END 2023-10-16 18:15 | disposition home or self-care (01) ==
LOC: ANHED 05:03 → ANHIMU 07:37
PROVIDERS: Admitting Provider Internal Medicine; Emergency Provider Emergency Medicine; PCP Internal Medicine; Visit Provider General Practice
DX: I48.0 Paroxysmal atrial fibrillation (principal); I11.9 Hypertensive heart disease without heart failure; E11.42 Type 2 diabetes mellitus with diabetic polyneuropathy; E11.65 Type 2 diabetes mellitus with hyperglycemia; I44.7 Left bundle-branch block, unspecified; E78.5 Hyperlipidemia, unspecified; E66.9 Obesity, unspecified; Z68.37 Body mass index [BMI] 37.0-37.9, adult; K21.9 Gastro-esophageal reflux disease without esophagitis; F17.220 Nicotine dependence, chewing tobacco, uncomplicated; Z79.84 Long term (current) use of oral hypoglycemic drugs; Z79.85 Long-term (current) use of injectable non-insulin antidiabetic drugs; Z79.899 Other long term (current) drug therapy
CPT/HCPCS: 36415; 71045; 80053; 82948; 83036; 83690; 84443; 84484; 85025; 85610; 85730; 93005; 96361; 96365; 96366; 96372; 96375; 99285; A9270; G0378; J1650; J7030

== ENCOUNTER 2024-02-11 09:15 | Emergency (ER) | payer OTHER, SELFPAY ==
[2024-02-11 09:23] VITALS: BP 125/87; PULSE 76; RESP 18; TEMP 36.2; O2SAT 96
--- NOTE | 2024-02-11 09:38 | ED.SKABFB ---
HPI - Skin/Abscess/Foreign Bdy General Chief complaint: Skin/Abscess/Foreign Body Stated complaint: RASH/INSECT BITE Time Seen by Provider: 02/11/24 09:32 Source: patient and RN notes reviewed Mode of arrival: ambulatory Limitations: no limitations History of Present Illness HPI narrative: Patient presents today complaining of an insect bite or sting to the right antecubital fossa x5 days. States the area of redness has been progressively getting bigger since onset. Denies pain or itching. He has tried some baking soda and water as well as some anti sting medication without relief of symptoms. Related Data Home Medications Medication Instructions Recorded Confirmed irbesartan 75 mg tablet 75 mg PO HS 08/26/23 02/11/24 metformin 500 mg tablet 500 mg PO BID 08/26/23 02/11/24 rosuvastatin 20 mg tablet 20 mg PO DAILY 08/26/23 02/11/24 semaglutide 2 mg/dose (8 mg/3 mL) 2 mg subcut WEEKLY 08/26/23 02/11/24 subcutaneous pen injector (Ozempic) dapagliflozin propanediol 10 mg 10 mg PO DAILY 02/11/24 02/11/24 tablet (Farxiga) Allergies Allergy/AdvReac Type Severity Reaction Status Date / Time No Known Allergies Allergy Verified 02/11/24 09:39 Review of Systems Review of Systems: CONSTITUTIONAL: Denies body aches, fever, chills, or sweats. EYES: Denies visual changes, redness, or discharge. ENT: Denies rhinorrhea, congestion, sore throat, or otalgia. CARDIOVASCULAR: Denies chest pain, palpitations, or edema. RESPIRATORY: Denies cough or dyspnea. GASTROINTESTINAL: Denies abdominal pain, nausea, vomiting, or diarrhea. GENITOURINARY: Denies dysuria or hematuria. SKIN: + insect sting or bite to right arm MUSCULOSKELETAL: Denies back pain, joint pain, or myalgia. NEUROLOGIC: Denies headache, numbness, tingling, or weakness. PSYCH: Denies depression or anxiety. [facility] Past Medical History Medical History Ankle fracture Cardiovascular stress test abnormal Diabetic peripheral neuropathy Dyslipidemia GERD (gastroesophageal reflux disease) Hypertension Type 2 diabetes mellitus Surgical History Surgical History History of adenoidectomy Childhood S/P anal fissurectomy (~1999) Family History Family History Father , At age 80 Family history of heart disease in male family member before age 55 Mother CHF (congestive heart failure) Atrial fibrillation Grandparent Thyroid cancer Diabetes mellitus Atrial fibrillation Other Hypertension Social History Social History Social History: Patient lives with his of approximately 31 years. They raised 2 children. 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 He has chewed tobacco since his early 20s into his about a can a day. He has never smoked tobacco. He only drinks on occasion in in moderation. He denies illicit substance use. Code status: Full code Healthcare power of city attorney: Smoking status: Current every day smoker Tobacco type: smokeless tobacco Smokeless tobacco user: chewing tobacco Alcohol intake: never Alcohol use details: on occasion Substance use: never Substance use type: does not use Do You Feel Safe in your Home?: Yes Lack of Transportation: YES Lack of Food: Never True Current Housing: I Have Housing Concerned About Future Housing: No Difficulty Paying Gas/Electric Bills: No Difficulty Paying for Meds: No Currently Unemployed: No Education: Bachelor's Degree Difficulty w/ Childcare or Family Care: No Living arrangements: with family Gender identity (if verbalized by the patient): Male Spiritual care concerns: No Comments At time of signature, I have reviewed and agree with nursing past medical
== END 2024-02-11 09:44 | disposition home or self-care (01) ==
PROVIDERS: Emergency Provider Nurse Practitioner; PCP Internal Medicine
DX: L03.113 Cellulitis of right upper limb (principal); T63.481A Toxic effect of venom of other arthropod, accidental (unintentional), initial encounter; F17.220 Nicotine dependence, chewing tobacco, uncomplicated; E11.42 Type 2 diabetes mellitus with diabetic polyneuropathy; I10 Essential (primary) hypertension; E78.5 Hyperlipidemia, unspecified; K21.9 Gastro-esophageal reflux disease without esophagitis; Z79.84 Long term (current) use of oral hypoglycemic drugs
CPT/HCPCS: 99213; G0463